=== PATIENT | female | born 1975 | race Caucasian/White ===

== ENCOUNTER → 2018-06-23 | Outpatient (CLI) | payer OTHER ==
--- NOTE | 2018-06-23 08:02 | US ---
EXAMINATION TYPE: US transvaginal DATE OF EXAM: 06/23/2018 COMPARISON: NONE CLINICAL HISTORY: Z12.31 Screening mammogram...Z01.419. Patient states she had the symptoms of menses but does not bleed. No pain. No previous surgeries. TECHNIQUE: Transvaginal (TV). Date of LMP: Unknown, A1 EXAM MEASUREMENTS: Uterus: 7.8 x 4.4 x 4.5 cm Endometrial Stripe: 0.7 cm Left Ovary: 3.2 x 2.8 x 2.3 cm 1. Uterus: Anteverted wnl 2. Endometrium: Focal area of echogenicity with vascular flow suggest avascular lesion in ROCHELLE region - 0.6 x 0.6 x 0.6 cm 3. Right Ovary: Obscured by overlying bowel gas 4. Left Ovary: wnl 5. Bilateral Adnexa: wnl 6. Posterior cul-de-sac: no free fluid Cervix- nabothian cysts IMPRESSION: 1. Probable vascular lesion in the lower uterine segment with findings suggestive of a 6 mm endometri al polyp. Direct visualization is recommended. 2. Endometrial thickness is upper limits of normal for a postmenopausal female. This can also be asse ssed on direct visualization. 3. Nonvisualization of the right ovary due to overlying bowel gas.
--- NOTE | 2018-06-23 09:14 | MM ---
Reason for exam: screening (asymptomatic). Baseline mammogram. History: Patient is nulliparous. Took hormonal contraceptives beginning at age 19. Physical Findings: Nurse did not find any significant physical abnormalities on exam. MG Screening Mammo w CAD Bilateral CC and MLO view(s) were taken. Technologist: Mariana Alfaro RT (R)(M) There are scattered fibroglandular densities. There is a 4mm retroareolar low density mass on the right. No suspicious abnormality on the left. These results were verbally communicated with the patient and result sheet given to the patient on 06/23/18. ASSESSMENT: Incomplete: need additional imaging evaluation, BI-RAD 0 RECOMMENDATION: Ultrasound of the right breast. (upper outer quadrant)
--- NOTE | 2018-06-23 09:15 | USB ---
Reason for exam: additional evaluation requested from abnormal screening. History: Patient is nulliparous. Took hormonal contraceptives beginning at age 19. Physical Findings: Breast exam preformed at baseline screening. US Breast Workup Limited RT Right limited breast ultrasound including focal area of concern, retroareolar and axilla demonstrates no cystic or solid lesion seen. No suspicious findings. These results were verbally communicated with the patient and result sheet given to the patient on 06/23/18. ASSESSMENT: Incomplete: need additional imaging evaluation, BI-RAD 0 RECOMMENDATION: Special view mammogram of the right breast.
--- NOTE | 2018-06-23 09:17 | MM ---
Reason for exam: additional evaluation requested from abnormal screening. History: Patient is nulliparous. Took hormonal contraceptives beginning at age 19. Physical Findings: Breast exam preformed at baseline screening. MG Work Up Mamm w CAD RT CC and MLO view(s) were taken of the right breast. Technologist: Mariana Alfaro, RT (R)(M) There are scattered fibroglandular densities. There are multiple similar appearing rounded masses in the retoroareolar right breast that are low density, possibly rounded fibroglandular tissue. 6 month follow up recommended as this is the baseline exam. No suspicious abnormality on the left. These results were verbally communicated with the patient and result sheet given to the patient on 06/23/18. ASSESSMENT: Probably benign, BI-RAD 3 RECOMMENDATION: Follow-up diagnostic mammogram of the right breast in 6 months.
== END | disposition home or self-care (01) ==
LOC: RADUSWWP 07:06
PROVIDERS: ATTEND Obstetrics & Gynecology
DX: Z12.31 Encounter for screening mammogram for malignant neoplasm of breast (principal); R92.8 Other abnormal and inconclusive findings on diagnostic imaging of breast; Z01.419 Encounter for gynecological examination (general) (routine) without abnormal findings
CPT/HCPCS: 76830; 77065; 77067

== ENCOUNTER → 2018-12-05 | Outpatient (CLI) | payer OTHER ==
--- NOTE | 2018-12-05 13:40 | XR ---
EXAMINATION TYPE: XR lumbosacral spine min 4V DATE OF EXAM: 12/05/2018 CLINICAL HISTORY: Low back pain. TECHNIQUE: Frontal, lateral, and oblique images of the lumbar spine are obtained. COMPARISON: None FINDINGS: There are 5 lumbar type vertebral bodies identified. The lumbar spine shows satisfactory alignment without evidence of acute fracture or dislocation. There is mild disc space narrowing L5-S1 level otherwise vertebral body heights and disk space heights are within normal limits. The obliqu e images appear within normal limits. Mild multilevel anterior and lateral spurring is present. The overlying soft tissue appears unremarkable. IMPRESSION: As above.
--- NOTE | 2018-12-05 13:41 | XR ---
EXAMINATION TYPE: XR sacroiliac joint comp BILAT DATE OF EXAM: 12/05/2018 COMPARISON: NONE HISTORY: Back and sacroiliac joint pain. TECHNIQUE: 2 views of bilateral sacroiliac joints are obtained. FINDINGS: Sacroiliac joints appear symmetric without suspicious narrowing, spurring, or joint space s clerosis identified bilaterally. Overlying soft tissue is unremarkable. IMPRESSION: As above.
--- NOTE | 2018-12-05 13:41 | XR ---
EXAMINATION TYPE: XR Hip Bilateral Complete DATE OF EXAM: 12/05/2018 CLINICAL HISTORY: Bilateral hip pain TECHNIQUE: AP and frogleg views of the bilateral hips are obtained. COMPARISON: None. FINDINGS: There is no acute fracture/dislocation evident in either hip. There is symmetric mild acet abular spurring and axial joint space loss. Occasional pelvic phlebolith is noted bilaterally. IMPRESSION: As above.
== END | disposition home or self-care (01) ==
LOC: RADXRMAIN 12:32
PROVIDERS: ATTEND Family Medicine
DX: M99.73 Connective tissue and disc stenosis of intervertebral foramina of lumbar region (principal); M76.892 Other specified enthesopathies of left lower limb, excluding foot; M76.891 Other specified enthesopathies of right lower limb, excluding foot; G89.29 Other chronic pain; M54.5 Low back pain; M25.552 Pain in left hip; M25.551 Pain in right hip
CPT/HCPCS: 72110; 72202; 73521

== ENCOUNTER → 2018-12-11 | Outpatient (CLI) | payer OTHER ==
--- NOTE | 2018-12-11 14:46 | CONS ---
CONSULTATION DATE OF SERVICE: 12/11/2018 A 43-year-old lady who has been re-evaluated in the [facility] for obstructive sleep apnea-hypopnea syndrome. HISTORY OF PRESENT ILLNESS/SLEEP-WAKE EVALUATION: Patient is on treatment with CPAP since 2013. CPAP titration done in February of 2014. Since that time, patient is using equipment every night for the whole night. For the last 6 months, patient started to develop episodes of gasping for air while she is using her CPAP unit. Patient usual sleep schedule from midnight until 7:30 a.m. on weekdays and from around midnight until 8:30 on weekends. She does have problem with falling asleep, although no TV in bedroom. She sleeps in different position. She sometimes open her mouth and snore even while she is using her machine. She wakes up from sleep with dry mouth, grinding teeth, episodes of restless legs, sweating, stopped breathing during the sleep. In the morning, she wakes up tired, has difficulties to pay attention, falling asleep during the day, has problem with memory, concentration, irritability, depression and anxiety. [place] Sleepiness Scale is 1. PAST MEDICAL HISTORY: Positive for hypertension, asthma, allergies, sinuses problems, diabetes, knee arthritis. PAST SURGICAL HISTORY: Adenoidectomy and ear tube insertion in 1993. MEDICATIONS: Claritin, metformin, Lipitor, Lotrel, vitamins, Flonase, hydrocortisone, Provera, meloxicam. SOCIAL HISTORY: Positive for smoking for around 20 pack years, quit 2 years ago. Alcohol consumption, none. FAMILY HISTORY: Heart problems, arthritis, sinus problems, snoring, diabetes, ulcers, thyroid problems, cancer. REVIEW OF SYSTEMS: Awakenings from sleep with gasping and choking. During physical exam, lady without distress. BP 158/86, HR 76, RR 18, height 5 foot 4 inches, weight 395 pounds, body mass index is 67.8, temperature 97.8, oxygen saturation at room air 97%. OROPHARYNX: Very small oropharyngeal air space, low position of soft palate, Mallampati III, wide pillars. Neck 20-1/2 inches in circumference. ABDOMEN: Obese. Neck Supple, no JVD. Thyroid is not palpable. LUNGS Clear to percussion and to auscultation. Good air exchange. No wheezing or rhonchi. HEART S1, S2 regular. No murmurs, gallops, or rubs. EXTREMITIES No clubbing or cyanosis. [employer]CE[employer] Awake, alert, and oriented X3. Cranial nerves 2 to 7 intact. There is no fasciculation or atrophy. noted. No focal deficits observed. I checked patient's CPAP unit. CPAP pressure is 12 cm of water. Usage is 27/30 nights for more than 4 hours which indicated a good compliance. Machine does not have any information about apnea-hypopnea index. IMPRESSION: 1. Obstructive sleep apnea-hypopnea syndrome for 4 years. Patient demonstrated great compliance with CPAP treatment, but awakenings from sleep with gasping for air. Very small oropharyngeal air space, wide neck. 2. Obesity, body mass index 67.8. 3. Hypertension. 4. Allergies. 5. Diabetes. 6. Asthma. 7. Sinus problems. 8. Knee arthritis. PLAN: 1. Repeat CPAP titration for evaluation of effective CPAP pressure at the present time. 2. Aggressive losing weight program. 3. Sleep hygiene with regular time in bed for at least 8 hours. 4. No driving if feeling sleepiness. Thank you very much for allowing me to participate in the management of your patient. Sincerely, Edmundo Hooker MD, PhD, FAASM Diplomat of [employer] [facility] [place] MMODL / BISIN: [id number] /
== END | disposition home or self-care (01) ==
LOC: SLEEP 11:50
PROVIDERS: ATTEND Internal Medicine
DX: G47.33 Obstructive sleep apnea (adult) (pediatric) (principal); G25.81 Restless legs syndrome; I10 Essential (primary) hypertension; E11.9 Type 2 diabetes mellitus without complications; E66.9 Obesity, unspecified; J45.909 Unspecified asthma, uncomplicated; M17.10 Unilateral primary osteoarthritis, unspecified knee; F45.8 Other somatoform disorders; T78.40XA Allergy, unspecified, initial encounter; Z79.3 Long term (current) use of hormonal contraceptives; Z79.1 Long term (current) use of non-steroidal anti-inflammatories (NSAID); Z79.899 Other long term (current) drug therapy; J34.89 Other specified disorders of nose and nasal sinuses; Z90.89 Acquired absence of other organs; Z96.22 Myringotomy tube(s) status; Z79.84 Long term (current) use of oral hypoglycemic drugs; Z87.891 Personal history of nicotine dependence; Z68.44 Body mass index [BMI] 60.0-69.9, adult; Z99.89 Dependence on other enabling machines and devices
CPT/HCPCS: 99211

== ENCOUNTER → 2019-02-19 | Outpatient (CLI) | payer OTHER ==
--- NOTE | 2019-02-19 13:50 | SFUN ---
SLEEP CENTER FOLLOW UP NOTE DATE OF SERVICE: 02/19/2019 A 43-year-old lady who has been followed in the Sleep Center for treatment of obstructive sleep apnea-hypopnea syndrome. Recently patient had CPAP titration which was very successful. Total apnea-hypopnea index during titration was only 0.5. Patient received new CPAP unit and today is her first visit on this new CPAP unit. Patient is able to use CPAP equipment every night for the whole night without significant problems. No problems with the mask. She is using nasal mask. [place] Sleepiness Scale today is 3. No snoring with the machine. I checked CPAP unit. CPAP pressure is 9 cm of water. Usage is 28/30 nights more than 4 hours, average 6.4 hours, which is very good compliance. Leak is 18 L/minutes which is borderline. Apnea-hypopnea index is 1.3, which is totally normal. MEDICATIONS: Clonidine, metformin, Lipitor, Lotrel, Flonase, Provera, meloxicam. PHYSICAL EXAM: Patient in no distress. BP 138/78, HR 98, RR 16, weight 394 pounds, temperature 98.1 oxygen saturation at room air 97%. OROPHARYNX: Low position of soft palate. Mallampati 3. ABDOMEN: Obese. Neck Supple, no JVD. Thyroid is not palpable. LUNGS Clear to percussion and to auscultation. Good air exchange. No wheezing or rhonchi. HEART S1, S2 regular. No murmurs, gallops, or rubs. EXTREMITIES No clubbing or cyanosis. [employer]ANCE Awake, alert, and oriented X3. Cranial nerves 2 to 7 intact. There is no fasciculation or atrophy. noted. No focal deficits observed. IMPRESSION: 1. Obstructive sleep apnea-hypopnea syndrome. Patient demonstrated great compliance with treatment, benefitting from treatment, normal aspiration on CPAP pressure 9 cm of water. 2. No significant periodic limb movements during the sleep study. 3. Obesity. 4. Hypertension. 5. History of allergies. 6. Diabetes mellitus. 7. History of asthma. 8. Knee arthritis. 9. History of sinus problems. PLAN: 1. Patient will continue to use CPAP equipment every night for the whole night with level of pressure 9 cm of water. 2. Losing weight. 3. Sleep hygiene with regular time bed for at least 8 hours. 4. No driving if feeling sleepiness. 5. Followup visit in 1 year or earlier if patient has any problems. Thank you very much for allowing me to participate in the management of your patient. Sincerely, Edmundo Hooker MD, PhD, FAASM Diplomat of [employer] [facility] [place] MMODL / CAROL: [id number] /
== END | disposition home or self-care (01) ==
LOC: SLEEP 11:18
PROVIDERS: ATTEND Internal Medicine
DX: G47.33 Obstructive sleep apnea (adult) (pediatric) (principal); E66.9 Obesity, unspecified; I10 Essential (primary) hypertension; E11.9 Type 2 diabetes mellitus without complications; M17.10 Unilateral primary osteoarthritis, unspecified knee; Z91.048 Other nonmedicinal substance allergy status; Z87.09 Personal history of other diseases of the respiratory system; Z99.89 Dependence on other enabling machines and devices

== ENCOUNTER → 2019-04-13 | Outpatient (CLI) | payer OTHER | END | disposition home or self-care (01) | LOC: RADMRIMAIN 14:34 | PROVIDERS: ATTEND Family Medicine | DX: Z53.9 Procedure and treatment not carried out, unspecified reason (principal) ==